=== PATIENT | male | born 1950 | race Caucasian/White ===

== ENCOUNTER 2020-05-19 12:20 | Inpatient (IN) | payer OTHER ==
[2020-05-19] VITALS (7 sets, daily range): BP systolic 119–144; BP diastolic 70–87
[~2020-05-19] VITALS: Ht 177.8 cm; Wt 108.9 kg
[~2020-05-19 12:20] MED LIST: KEFLEX500 MG PO
--- NOTE | 2020-05-19 13:00 | NUR ---
UPON CHANGING THE PATIENT INTO A GOWN I KNOWED BILATERAL LOWER LEG EDEMA. THE SKIN ON THE LOWER LEGS ARE SMOOTH, TIGHT, SHINY, WITH SOME DISCOLORATION
[2020-05-19 13:37] LABS: BASO % 0.1 % (0.0-1.0); EOS % 0.5 % (1.0-4.0); HEMATOCRIT 39.4 % (42.0-52.0); LYMPH # 1.3 10*3/uL (1.3-4.4); LYMPH % 15.4 % (27.0-41.0); MEAN CELL VOLUME 96.8 fl (80.0-94.0); MEAN CORPUSCULAR HGB 31.9 pg (27.0-31.0); MEAN PLATELET VOLUME 11.6 fl (9.6-12.3); MONO # 0.7 10*3/uL (0.1-1.0); MONO % 8.8 % (3.0-9.0); NEUT # 6.2 10*3/uL (2.3-7.9); NEUT % 74.8 % (47.0-73.0); PLATELET COUNT AUTOMATED 125 10*3/uL (130-400); RED BLOOD COUNT 4.07 10*6/uL (4.50-5.90); RED CELL DISTRI WIDTH 14.6 % (0-14.5); WHITE BLOOD COUNT 8.3 10*3/uL (4.8-10.8)
[2020-05-19 13:44] LABS: ACT PARTIAL THROMBO TIME 29.1 SECONDS (20.0-32.1); INTERNATIONAL NORM RATIO 1.3 (2.0-3.5)
[2020-05-19 13:48] LABS: ALBUMIN 3.8 gm/dl (3.1-4.5); ALKALINE PHOSPHATASE 121 U/L (45-117); BUN 13 mg/dl (7-24); CHLORIDE 105 mmol/L (98-107); CREATININE 0.83 mg/dL (0.70-1.30); LIPASE 85 U/L (73-393); POTASSIUM 4.2 mmol/L (3.5-5.1); SGOT/AST 31 IU/L (3-35); SGPT/ALT 35 U/L (12-78); SODIUM 138 mmol/L (136-145); TOTAL PROTEIN 6.5 gm/dL (6.4-8.2)
[2020-05-19 13:49] LABS: TROPONIN I 0.025 ng/ml (<0.045)
--- NOTE | 2020-05-19 15:52 | NUR ---
A 70, admitted to , under the services of OKSANA Mortensen DO with a diagnosis of CHF. Chief complaint is SHORTNESS OF BREATH, SWELLING IN LEGS. Patient arrived via bed from ER. Monitor applied. Initial assessment completed. Vital signs taken and recorded. OKSANA MORTENSEN DO notified of admission to the unit. Orders received. See assessment for past medical history, medications and allergies. Patient and/or family oriented to unit. [facility] visitation policy reviewed. Clothing/patient valuable form completed. CYNDY FRAZIER
[2020-05-19] MEDS ORDERED: MELOXICAM15 MG PO (16:08)
[2020-05-19] MEDS ORDERED: XALATAN 0.005%2.5 ML INTRAOC (16:08)
--- NOTE | 2020-05-19 20:43 | NUR ---
called and spoke with Dr. Wall about elevated HR since admission and orders to be received.
[2020-05-20 00:08] VITALS: BP 135/81
[2020-05-20 01:04] LABS: BILIRUBIN NEGATIVE; CLARITY CLEAR (CLEAR); COLOR YELLOW (YELLOW); GLUCOSE NEGATIVE; KETONE NEGATIVE
[2020-05-20 01:05] LABS: BLOOD NEGATIVE (NEGATIVE); LEUKO ESTERASE NEGATIVE (NEGATIVE); NITRITE NEGATIVE (NEGATIVE); PH 5.5 (4.5-8.0); SPECIFIC GRAVITY 1.025 (1.001-1.030)
[2020-05-20 01:06] LABS: RBC 0-2 rbc/hpf (0-2); WBC 0-2 wbc/hpf (0-5)
--- NOTE | 2020-05-20 03:28 | NUR ---
24 HR chart check completed.
[2020-05-20 06:04] LABS: BASO % 0.3 % (0.0-1.0); EOS # 0.1 10*3/uL (0.0-0.4); EOS % 1.6 % (1.0-4.0); HEMATOCRIT 38.8 % (42.0-52.0); LYMPH % 28.4 % (27.0-41.0); MEAN CELL VOLUME 96.3 fl (80.0-94.0); MEAN CORPUSCULAR HGB 31.8 pg (27.0-31.0); MEAN PLATELET VOLUME 11.6 fl (9.6-12.3); MONO # 0.8 10*3/uL (0.1-1.0); MONO % 11.2 % (3.0-9.0); NEUT % 57.9 % (47.0-73.0); PLATELET COUNT AUTOMATED 123 10*3/uL (130-400); RED BLOOD COUNT 4.03 10*6/uL (4.50-5.90); RED CELL DISTRI WIDTH 14.6 % (0-14.5); WHITE BLOOD COUNT 6.9 10*3/uL (4.8-10.8)
[2020-05-20 06:34] LABS: ALBUMIN 3.4 gm/dl (3.1-4.5); BUN 11 mg/dl (7-24); CHLORIDE 107 mmol/L (98-107); CHOLESTEROL 127 mg/dL (<200); POTASSIUM 3.5 mmol/L (3.5-5.1); SGOT/AST 28 IU/L (3-35); SGPT/ALT 34 U/L (12-78); SODIUM 141 mmol/L (136-145); TRIGLYCERIDES 40 mg/dl (<150); VLDL CHOLESTEROL 8 mg/dL (6-40)
[2020-05-20 06:41] LABS: ALKALINE PHOSPHATASE 108 U/L (45-117); FREE T4 1.11 ng/dl (0.76-1.46); HDL CHOLESTEROL 33 mg/dl (40-60); LDL CHOLESTEROL 86 mg/dL (9-159); TOTAL PROTEIN 5.9 gm/dL (6.4-8.2)
--- NOTE | 2020-05-20 07:30 | NUR ---
ASSUMED CARE FOR PT, DENIES SOB OR CHEST PAIN, CM INTACT 100-120 HR. CALL LIGHT WITHIN REACH.
[2020-05-20 08:04] LABS: VITAMIN D, 25-HYDROXY 42.3 ng/mL (30-100)
[2020-05-20 08:30] VITALS: BP 122/68
--- NOTE | 2020-05-20 08:53 | NUR ---
NOTIFIED HR IS ST 120s PER CM. SAID TO WAIT FOR CARDIO RECOMMENDATIONS.
--- NOTE | 2020-05-20 08:58 | NUR ---
Rn Flight in to talk to patient. Patient states lives at HOME with . There are 0 steps in the home. Physician: ALEXANDER RILEY, DR. PLUNKETT Pharmacy: [facility] [place] [facility]: NONE Patient's level of ADLs: INDEPENDENT Patient has working utilities: YES DME: NONE Follow-up physician's appointment after d/c: PER HOSPITALISTS OFFICE Does patient want to access PORTAL?: NO Discharge plan In to see patient to discuss discharge plan. Patient lives at home with his in a one story ranch style home with 12 steps going down into the basement. Patient does not have any DME or oxygen needs, he is independent in his ADL's and ambulation. He denies any VNA/DME needs at home at this time. When discharged, patient will return home with who will transport. . ANGELINA LOPEZ
--- NOTE | 2020-05-20 09:13 | NUR ---
PT OFF UNIT AT THIS TIME FOR MRI, LEFT IN A STABLE CONDITION. 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
--- NOTE | 2020-05-20 10:12 | NUR ---
PT RETURNED TO UNIT AT THIS TIME.
--- NOTE | 2020-05-20 10:38 | NUR ---
Shift chart check completed.
[2020-05-20 12:00] VITALS: BP 104/58
[2020-05-20 16:00] VITALS: BP 105/50
--- NOTE | 2020-05-20 16:12 | NUR ---
NOTIFIED DR. COLLINS OF PTS HR 100-120'S, DESPITE GIVING TOPROLOL XL PER ORDER. NO NEW ORDERS AT THIS TIME.
[2020-05-20 20:00] VITALS: BP 106/66
[2020-05-21] VITALS: BP 109/69
--- NOTE | 2020-05-21 02:48 | NUR ---
24 HR chart check completed.
--- NOTE | 2020-05-21 03:07 | NUR ---
SLEEPING NO ACUTE DISTRESS NOTED.
[2020-05-21 06:29] LABS: BASO % 0.1 % (0.0-1.0); EOS # 0.1 10*3/uL (0.0-0.4); EOS % 1.8 % (1.0-4.0); HEMATOCRIT 40.3 % (42.0-52.0); LYMPH % 29.6 % (27.0-41.0); MEAN CELL VOLUME 96.4 fl (80.0-94.0); MEAN CORPUSCULAR HGB 31.8 pg (27.0-31.0); MEAN PLATELET VOLUME 11.6 fl (9.6-12.3); MONO # 0.9 10*3/uL (0.1-1.0); MONO % 12.7 % (3.0-9.0); NEUT # 3.8 10*3/uL (2.3-7.9); NEUT % 55.4 % (47.0-73.0); PLATELET COUNT AUTOMATED 125 10*3/uL (130-400); RED BLOOD COUNT 4.18 10*6/uL (4.50-5.90); RED CELL DISTRI WIDTH 14.8 % (0-14.5); WHITE BLOOD COUNT 6.8 10*3/uL (4.8-10.8)
[2020-05-21 06:37] LABS: BUN 10 mg/dl (7-24); CHLORIDE 106 mmol/L (98-107); CREATININE 0.76 mg/dL (0.70-1.30); POTASSIUM 3.6 mmol/L (3.5-5.1); SODIUM 141 mmol/L (136-145)
[2020-05-21 08:00] VITALS: BP 106/54
[2020-05-21 12:00] VITALS: BP 133/74
[2020-05-21] MEDS ORDERED: XARE20MG PO (15:21)
[2020-05-21] MEDS ORDERED: METOPROLOL SUCC50 M1 PO (15:21)
--- NOTE | 2020-05-21 15:24 | NUR ---
Discharge instructions reviewed with patient/family. Patient receptive and verbalizes understanding. Follow-up care arranged. Written instructions given to patient/family. MARINA FARRELL
[2020-05-21] MEDS ORDERED: LASIX40 MG PO (15:54)
== END 2020-05-21 15:55 | disposition left against medical advice (07) | DRG 292 ==
LOC: ED 12:20 → EDHOLD 14:34 → 4E 14:34
PROVIDERS: Emergency Medicine; Internal Medicine; Registered Nurse; Student in an Organized Health Care Education/Training Program; ADMIT Internal Medicine; ATTEND Internal Medicine
DX: I11.0 Hypertensive heart disease with heart failure (principal); R65.10 Systemic inflammatory response syndrome (SIRS) of non-infectious origin without acute organ dysfunction; I48.92 Unspecified atrial flutter; I50.9 Heart failure, unspecified; D53.9 Nutritional anemia, unspecified; D69.6 Thrombocytopenia, unspecified; R00.0 Tachycardia, unspecified; Z98.49 Cataract extraction status, unspecified eye; M19.90 Unspecified osteoarthritis, unspecified site; Z82.49 Family history of ischemic heart disease and other diseases of the circulatory system; Z81.8 Family history of other mental and behavioral disorders; Z80.1 Family history of malignant neoplasm of trachea, bronchus and lung; Z53.29 Procedure and treatment not carried out because of patient's decision for other reasons

== ENCOUNTER → 2020-06-01 | Outpatient (CLI) | payer OTHER ==
[~2020-06-01] MED LIST changes: +LASIX40 MG PO; +MELOXICAM15 MG PO; +METOPROLOL SUCC50 M1 PO; +XALATAN 0.005%2.5 ML INTRAOC; +XARE20MG PO
== END | disposition home or self-care (01) ==
LOC: NM 09:51
PROVIDERS: ATTEND Internal Medicine
DX: M89.9 Disorder of bone, unspecified (principal)

== ENCOUNTER → 2020-06-20 | Outpatient (CLI) | payer OTHER ==
[~2020-06-20] MED LIST changes: +TOPROL XL50 M1 PO
== END | disposition home or self-care (01) ==
LOC: COVID19 02:42
PROVIDERS: ATTEND Internal Medicine Cardiovascular Disease
DX: Z20.828 Contact with and (suspected) exposure to other viral communicable diseases (principal); R00.2 Palpitations; I48.92 Unspecified atrial flutter

== ENCOUNTER → 2020-06-24 | Day surgery (SDC) | payer OTHER ==
[~2020-06-24] VITALS: Ht 177.8 cm; Wt 108.9 kg
[2020-06-24 11:05] VITALS: BP 97/66
[2020-06-24 12:07] VITALS: BP 105/64
[2020-06-24 12:23] VITALS: BP 103/65
[2020-06-24 12:36] VITALS: BP 94/55
== END ==
LOC: SDC 06-21 08:00
PROVIDERS: ATTEND Internal Medicine Cardiovascular Disease
DX: I48.92 Unspecified atrial flutter (principal); R00.2 Palpitations; I11.0 Hypertensive heart disease with heart failure; I50.9 Heart failure, unspecified

== ENCOUNTER 2020-07-06 21:37 | Observation (INO) | payer OTHER ==
[~2020-07-06] VITALS: Ht 177.8 cm; Wt 110.7 kg
[2020-07-06 21:49] VITALS: BP 125/60
[2020-07-06 23:03] VITALS: BP 117/72
[2020-07-06 23:11] LABS: BASO % 0.6 % (0.0-1.0); EOS # 0.1 10*3/uL (0.0-0.4); EOS % 1.7 % (1.0-4.0); HEMATOCRIT 41.1 % (42.0-52.0); LYMPH # 1.8 10*3/uL (1.3-4.4); LYMPH % 25.6 % (27.0-41.0); MEAN CELL VOLUME 99.5 fl (80.0-94.0); MEAN CORPUSCULAR HGB CONC 32.1 g/dl (33.0-37.0); MEAN PLATELET VOLUME 12.3 fl (9.6-12.3); MONO # 0.9 10*3/uL (0.1-1.0); MONO % 12.2 % (3.0-9.0); NEUT # 4.2 10*3/uL (2.3-7.9); NEUT % 58.6 % (47.0-73.0); PLATELET COUNT AUTOMATED 116 10*3/uL (130-400); RED BLOOD COUNT 4.13 10*6/uL (4.50-5.90); RED CELL DISTRI WIDTH 15.9 % (0-14.5); WHITE BLOOD COUNT 7.2 10*3/uL (4.8-10.8)
[2020-07-06 23:19] LABS: INTERNATIONAL NORM RATIO 1.8 (2.0-3.5)
[2020-07-06 23:21] LABS: ALBUMIN 3.7 gm/dl (3.1-4.5); ALKALINE PHOSPHATASE 151 U/L (45-117); BUN 14 mg/dl (7-24); CHLORIDE 106 mmol/L (98-107); CREATININE 1.07 mg/dL (0.70-1.30); POTASSIUM 3.6 mmol/L (3.5-5.1); SGOT/AST 29 IU/L (3-35); SGPT/ALT 30 U/L (12-78); SODIUM 140 mmol/L (136-145); TOTAL PROTEIN 6.2 gm/dL (6.4-8.2)
[2020-07-06 23:22] LABS: TROPONIN I 0.045 ng/ml (<0.045)
[2020-07-07 01:45] VITALS: BP 92/65
[2020-07-07 03:41] VITALS: BP 93/55
[2020-07-07 04:20] VITALS: BP 116/7; BP 116/70
[2020-07-07] MEDS ORDERED: ALDACTONE25 M1 PO (04:52)
[2020-07-07] MEDS ORDERED: BUMETANIDE1 MG PO (04:53)
[2020-07-07 08:00] VITALS: BP 111/49
[2020-07-07 12:00] VITALS: BP 122/56
[2020-07-07 16:00] VITALS: BP 103/59
== END 2020-07-07 20:11 | disposition home or self-care (01) ==
LOC: ED 21:37 → EDHOLD 07-07 00:52 → 4E 07-07 03:58
PROVIDERS: Emergency Medicine; ADMIT Family Medicine; ATTEND Family Medicine
DX: I48.92 Unspecified atrial flutter (principal); R00.0 Tachycardia, unspecified; R65.10 Systemic inflammatory response syndrome (SIRS) of non-infectious origin without acute organ dysfunction; R06.82 Tachypnea, not elsewhere classified; D53.9 Nutritional anemia, unspecified; R74.8 Abnormal levels of other serum enzymes; D69.6 Thrombocytopenia, unspecified; I11.0 Hypertensive heart disease with heart failure; I50.9 Heart failure, unspecified; M19.90 Unspecified osteoarthritis, unspecified site

== ENCOUNTER 2020-07-28 12:20 | Inpatient (IN) | payer OTHER, MEDICARE ==
[2020-07-28] VITALS (7 sets, daily range): BP systolic 97–127; BP diastolic 45–68
[~2020-07-28] VITALS: Ht 177.8 cm; Wt 108.9 kg
[~2020-07-28 12:20] MED LIST changes: +ALDACTONE25 M1 PO; +BUMETANIDE1 MG PO
[2020-07-28 14:09] LABS: BASO % 0.2 % (0.0-1.0); EOS # 0.1 10*3/uL (0.0-0.4); HEMATOCRIT 42.8 % (42.0-52.0); LYMPH # 1.9 10*3/uL (1.3-4.4); LYMPH % 19.9 % (27.0-41.0); MEAN CELL VOLUME 98.6 fl (80.0-94.0); MEAN CORPUSCULAR HGB 32.3 pg (27.0-31.0); MEAN CORPUSCULAR HGB CONC 32.7 g/dl (33.0-37.0); MONO # 1.1 10*3/uL (0.1-1.0); MONO % 11.4 % (3.0-9.0); NEUT # 6.3 10*3/uL (2.3-7.9); NEUT % 66.8 % (47.0-73.0); NUCLEATED RED BLOOD CELL 0.3 % (0.0-0.0); PLATELET COUNT AUTOMATED 92 10*3/uL (130-400); RED BLOOD COUNT 4.34 10*6/uL (4.50-5.90); RED CELL DISTRI WIDTH 16.5 % (0-14.5); WHITE BLOOD COUNT 9.4 10*3/uL (4.8-10.8)
[2020-07-28 14:23] LABS: ACT PARTIAL THROMBO TIME 34.6 SECONDS (20.0-32.1); INTERNATIONAL NORM RATIO 1.8 (2.0-3.5)
[2020-07-28 14:26] LABS: ALBUMIN 3.6 gm/dl (3.1-4.5); CREATININE 2.2 mg/dL (0.70-1.30); POTASSIUM 4.5 mmol/L (3.5-5.1); TOTAL PROTEIN 6.3 gm/dL (6.4-8.2)
[2020-07-28 14:38] LABS: TROPONIN I 0.096 ng/ml (<0.045)
[2020-07-28 14:44] LABS: BILIRUBIN Negative (Negative); BLOOD Negative (Negative); CLARITY Clear (Clear); COLOR Yellow (Yellow); GLUCOSE Negative (Negative); KETONE Negative (Negative); LEUKO ESTERASE Negative (Negative); NITRITE Negative (Negative); SPECIFIC GRAVITY 1.015 (1.001-1.030); UROBILINOGEN 0.2 E.U./dl (0.0-1.0)
[2020-07-28 15:16] LABS: CALCIUM OXALATE CRYSTALS TR
[2020-07-28 15:17] LABS: BACTERIA TRACE; EPITHELIAL CELLS 0-2; WBC 0-2 wbc/hpf (0-5)
[2020-07-29] MEDS ORDERED: TYLENOL EXTRA500 M2 PO (00:46)
[2020-07-29] MEDS ORDERED: MUCINEX1200 M1 PO (00:47)
[2020-07-29 02:02] VITALS: BP 124/57
[2020-07-29 06:09] LABS: TOTAL PROTEIN, SERUM 5.5 g/dL (6.0-8.5)
[2020-07-29 07:34] LABS: BASO % 0.3 % (0.0-1.0); EOS # 0.1 10*3/uL (0.0-0.4); HEMATOCRIT 42.1 % (42.0-52.0); LYMPH # 2.3 10*3/uL (1.3-4.4); MEAN CELL VOLUME 101.4 fl (80.0-94.0); MEAN CORPUSCULAR HGB 32.8 pg (27.0-31.0); MEAN CORPUSCULAR HGB CONC 32.3 g/dl (33.0-37.0); MEAN PLATELET VOLUME 13.6 fl (9.6-12.3); MONO # 1.1 10*3/uL (0.1-1.0); MONO % 11.7 % (3.0-9.0); NEUT % 62.3 % (47.0-73.0); NUCLEATED RED BLOOD CELL 0.4 % (0.0-0.0); PLATELET COUNT AUTOMATED 92 10*3/uL (130-400); RED BLOOD COUNT 4.15 10*6/uL (4.50-5.90); RED CELL DISTRI WIDTH 17.2 % (0-14.5); WHITE BLOOD COUNT 9.6 10*3/uL (4.8-10.8)
[2020-07-29 07:36] LABS: INTERNATIONAL NORM RATIO 1.4 (2.0-3.5)
[2020-07-29 07:42] VITALS: BP 128/50
[2020-07-29 07:45] LABS: ALBUMIN 3.5 gm/dl (3.1-4.5); POTASSIUM 4.1 mmol/L (3.5-5.1)
[2020-07-29 07:57] LABS: CREATININE 1.87 mg/dL (0.70-1.30); THYROID STIM HORMONE (HS) 1.76 uIU/ml (0.358-4.75); TOTAL PROTEIN 6.2 gm/dL (6.4-8.2)
[2020-07-29 12:00] VITALS: BP 120/69
[2020-07-29 16:00] VITALS: BP 100/57
[2020-07-29 16:08] LABS: A/G RATIO 2.1 (0.7-1.7); ALBUMIN 3.7 g/dL (2.9-4.4); ALPHA-1-GLOBULIN 0.3 g/dL (0.0-0.4); ALPHA-2-GLOBULIN 0.6 g/dL (0.4-1.0); BETA GLOBULIN 0.7 g/dL (0.7-1.3); GAMMA GLOBULIN 0.2 g/dL (0.4-1.8); GLOBULIN, TOTAL 1.8 g/dL (2.2-3.9); M-SPIKE Not Observed g/dL (Not Observed)
[2020-07-29 20:00] VITALS: BP 110/60
== END 2020-07-29 21:15 | disposition short-term general hospital (02) | DRG 640 ==
LOC: ED 12:20 → EDHOLD 14:59 → 4E 14:59 → 5E 22:36 → EDHOLD 22:36 → 4E 22:38
PROVIDERS: Emergency Medicine; Student in an Organized Health Care Education/Training Program; ADMIT Internal Medicine; ATTEND Internal Medicine
DX: E83.52 Hypercalcemia (principal); N17.0 Acute kidney failure with tubular necrosis; I48.92 Unspecified atrial flutter; E87.1 Hypo-osmolality and hyponatremia; I50.32 Chronic diastolic (congestive) heart failure; I24.8 Other forms of acute ischemic heart disease; C90.00 Multiple myeloma not having achieved remission; M19.90 Unspecified osteoarthritis, unspecified site; D75.89 Other specified diseases of blood and blood-forming organs; R74.8 Abnormal levels of other serum enzymes; R73.9 Hyperglycemia, unspecified; K46.9 Unspecified abdominal hernia without obstruction or gangrene; E83.41 Hypermagnesemia; M89.9 Disorder of bone, unspecified; D69.6 Thrombocytopenia, unspecified; Z79.01 Long term (current) use of anticoagulants; Z82.49 Family history of ischemic heart disease and other diseases of the circulatory system; Z80.2 Family history of malignant neoplasm of other respiratory and intrathoracic organs; Z82.0 Family history of epilepsy and other diseases of the nervous system; Z98.49 Cataract extraction status, unspecified eye; Z79.899 Other long term (current) drug therapy

== ENCOUNTER → 2020-10-12 | Outpatient (CLI) | payer OTHER ==
[~2020-10-12] MED LIST changes: +CEPHALEXIN500 M1 PO; +MUCINEX1200 M1 PO; +TYLENOL EXTRA500 M2 PO
[2020-10-12 09:31] LABS: HEMATOCRIT 36.3 % (42.0-52.0)
[2020-10-12 09:32] LABS: BILIRUBIN Negative (Negative); BLOOD Negative (Negative); CLARITY Clear (Clear); COLOR Yellow (Yellow); GLUCOSE 1+ (Negative); KETONE Negative (Negative); LEUKO ESTERASE Negative (Negative); NITRITE Negative (Negative); UROBILINOGEN 0.2 E.U./dl (0.0-1.0)
[2020-10-12 09:40] LABS: URINE CREATININE RANDOM 62.4 mg/dL
[2020-10-12 09:42] LABS: RBC 0-2 rbc/hpf (0-2); WBC 0-2 wbc/hpf (0-5)
[2020-10-12 09:59] LABS: BUN 33 mg/dl (7-24); CHLORIDE 90 mmol/L (98-107); CREATININE 0.97 mg/dL (0.70-1.30); POTASSIUM 3.9 mmol/L (3.5-5.1); SODIUM 127 mmol/L (136-145)
[2020-10-12 14:32] LABS: PTH INTACT 125.3 pg/mL (18.5-88.0); VITAMIN D, 25-HYDROXY 25.1 ng/mL (30-100)
[2020-10-13 09:09] LABS: CREATININE,URINE 56.8 mg/dL (Not Estab.)
== END | disposition home or self-care (01) ==
LOC: LAB 09:08
PROVIDERS: ATTEND Internal Medicine
DX: I12.9 Hypertensive chronic kidney disease with stage 1 through stage 4 chronic kidney disease, or unspecified chronic kidney disease (principal); N18.9 Chronic kidney disease, unspecified; N17.9 Acute kidney failure, unspecified; R60.9 Edema, unspecified; E55.9 Vitamin D deficiency, unspecified

== ENCOUNTER → 2020-10-26 | Outpatient (CLI) | payer OTHER ==
[2020-10-26 10:11] LABS: BUN 32 mg/dl (7-24); CHLORIDE 96 mmol/L (98-107); CREATININE 1.17 mg/dL (0.70-1.30); POTASSIUM 3.9 mmol/L (3.5-5.1); SODIUM 135 mmol/L (136-145)
== END | disposition home or self-care (01) ==
LOC: LAB 09:19
PROVIDERS: ATTEND Internal Medicine
DX: E87.1 Hypo-osmolality and hyponatremia (principal)

== ENCOUNTER 2020-10-30 19:24 | Emergency (ER) | payer OTHER ==
[~2020-10-30] VITALS: Ht 177.8 cm; Wt 102.1 kg
[~2020-10-30 19:24] MED LIST changes: -CEPHALEXIN500 M1 PO
[2020-10-30] MEDS ORDERED: CEPHALEXIN500 M1 PO (21:12)
== END 2020-10-31 01:47 | disposition home or self-care (01) ==
LOC: ED 19:24
DX: S90.31XA Contusion of right foot, initial encounter (principal); L03.115 Cellulitis of right lower limb; Z79.899 Other long term (current) drug therapy; W20.8XXA Other cause of strike by thrown, projected or falling object, initial encounter; Y93.89 Activity, other specified; Y92.89 Other specified places as the place of occurrence of the external cause; Y99.8 Other external cause status

== ENCOUNTER → 2020-11-30 | Outpatient (CLI) | payer OTHER ==
[~2020-11-30] MED LIST changes: +CEPHALEXIN500 M1 PO
[2020-11-30 10:22] LABS: BUN 21 mg/dl (7-24); CHLORIDE 92 mmol/L (98-107); CREATININE 1.01 mg/dL (0.70-1.30); SODIUM 133 mmol/L (136-145)
== END | disposition home or self-care (01) ==
LOC: LAB 09:37
PROVIDERS: ATTEND Internal Medicine
DX: N18.30 Chronic kidney disease, stage 3 unspecified (principal)

== ENCOUNTER → 2021-04-15 | Outpatient (CLI) | payer OTHER ==
[~2021-04-15] MED LIST changes: +AMIODARONE HYD200 MG PO; +BUMETANIDE2 MG PO; +DEXAMETHASONE4 MG PO; +ELIQUIS5 M1 PO; +K-TAB20 MEQ PO; +LATANOPROST2.5 ML OP; +METOPROLOL TAR100 M1 PO; +TRAZODONE50 MG PO
[2021-04-15 16:02] LABS: BILIRUBIN Negative (Negative); BLOOD Negative (Negative); CLARITY Clear (Clear); COLOR Yellow (Yellow); GLUCOSE Negative (Negative); KETONE Negative (Negative); LEUKO ESTERASE Negative (Negative); NITRITE Negative (Negative); SPECIFIC GRAVITY <= 1.005 (1.001-1.030)
[2021-04-15 16:12] LABS: URINE CREATININE RANDOM 20.1 mg/dL
[2021-04-15 16:16] LABS: EPITHELIAL CELLS 0-2; RBC 0-2 rbc/hpf (0-2); WBC 0-2 wbc/hpf (0-5)
[2021-04-15 16:17] LABS: BACTERIA TRACE
[2021-04-15 16:39] LABS: BUN 23 mg/dl (7-24); CHLORIDE 91 mmol/L (98-107); CREATININE 0.96 mg/dL (0.70-1.30); POTASSIUM 3.5 mmol/L (3.5-5.1); SODIUM 128 mmol/L (136-145)
[2021-04-15 16:52] LABS: PTH INTACT 166.5 pg/mL (18.5-88.0); VITAMIN D, 25-HYDROXY 26.3 ng/mL (30-100)
[2021-04-18 10:07] LABS: CREATININE,URINE 21.6 mg/dL (Not Estab.)
== END | disposition home or self-care (01) ==
LOC: LAB 15:25
PROVIDERS: ATTEND Internal Medicine
DX: I12.9 Hypertensive chronic kidney disease with stage 1 through stage 4 chronic kidney disease, or unspecified chronic kidney disease (principal); N18.30 Chronic kidney disease, stage 3 unspecified; R60.1 Generalized edema; C90.00 Multiple myeloma not having achieved remission; E55.9 Vitamin D deficiency, unspecified; E87.1 Hypo-osmolality and hyponatremia

== ENCOUNTER → 2021-04-21 | Outpatient (CLI) | payer OTHER ==
[2021-04-21 12:07] LABS: BUN 12 mg/dl (7-24); CHLORIDE 94 mmol/L (98-107); CREATININE 0.89 mg/dL (0.70-1.30); POTASSIUM 4.6 mmol/L (3.5-5.1); SODIUM 130 mmol/L (136-145)
== END | disposition home or self-care (01) ==
LOC: LAB 11:25
PROVIDERS: ATTEND Internal Medicine
DX: E87.1 Hypo-osmolality and hyponatremia (principal)

== ENCOUNTER 2021-05-17 07:56 | Emergency (ER) | payer OTHER ==
[2021-05-17] VITALS (14 sets, daily range): BP systolic 76–154; BP diastolic 52–87
[~2021-05-17] VITALS: Wt 95.4 kg
[~2021-05-17 07:56] MED LIST changes: -AMIODARONE HYD200 MG PO; -BUMETANIDE2 MG PO; -DEXAMETHASONE4 MG PO; -ELIQUIS5 M1 PO; -K-TAB20 MEQ PO; -LATANOPROST2.5 ML OP; -METOPROLOL TAR100 M1 PO; -TRAZODONE50 MG PO
[2021-05-17 08:25] LABS: HEMATOCRIT 48.1 % (42.0-52.0); MEAN CELL VOLUME 87.6 fl (80.0-94.0); MEAN CORPUSCULAR HGB 27.9 pg (27.0-31.0); MEAN CORPUSCULAR HGB CONC 31.8 g/dl (33.0-37.0); MEAN PLATELET VOLUME 10.7 fl (9.6-12.3); PLATELET COUNT AUTOMATED 201 10*3/uL (130-400); RED BLOOD COUNT 5.49 10*6/uL (4.50-5.90); RED CELL DISTRI WIDTH 17.8 % (0-14.5); WHITE BLOOD COUNT 18.5 10*3/uL (4.8-10.8)
[2021-05-17 08:40] LABS: ALBUMIN 2.4 gm/dl (3.1-4.5); CREATININE 1.69 mg/dL (0.70-1.30); TOTAL PROTEIN 6.4 gm/dL (6.4-8.2)
[2021-05-17 08:50] LABS: PLATELET SUFFICIENCY NORMAL (NORMAL); TOTAL CELLS COUNTED 100 #CELLS
[2021-05-17 08:55] LABS: TROPONIN I 0.513 ng/ml (<0.045)
[2021-05-17] MEDS ORDERED: TRAZODONE50 MG PO (18:32)
[2021-05-17] MEDS ORDERED: LATANOPROST2.5 ML OP (18:33)
[2021-05-17] MEDS ORDERED: ELIQUIS5 M1 PO (18:34)
[2021-05-17] MEDS ORDERED: DEXAMETHASONE4 MG PO (18:34)
[2021-05-17] MEDS ORDERED: AMIODARONE HYD200 MG PO (18:36)
[2021-05-17] MEDS ORDERED: METOPROLOL TAR100 M1 PO (18:37)
[2021-05-17] MEDS ORDERED: BUMETANIDE2 MG PO (18:37)
[2021-05-17] MEDS ORDERED: K-TAB20 MEQ PO (18:38)
[2021-05-18] VITALS (12 sets, daily range): BP systolic 90–105; BP diastolic 46–66
[2021-05-18 20:42] LABS: HEMATOCRIT 37.2 % (42.0-52.0); MEAN CORPUSCULAR HGB 27.9 pg (27.0-31.0); MEAN CORPUSCULAR HGB CONC 33.3 g/dl (33.0-37.0); MEAN PLATELET VOLUME 9.6 fl (9.6-12.3); PLATELET COUNT AUTOMATED 144 10*3/uL (130-400); RED BLOOD COUNT 4.44 10*6/uL (4.50-5.90); WHITE BLOOD COUNT 12.6 10*3/uL (4.8-10.8)
[2021-05-18 20:49] LABS: MEAN CELL VOLUME 83.8 fl (80.0-94.0)
[2021-05-18 21:00] LABS: ALBUMIN 2.1 gm/dl (3.1-4.5); ALKALINE PHOSPHATASE 104 U/L (45-117); BUN 14 mg/dl (7-24); CHLORIDE 91 mmol/L (98-107); CREATININE 1.04 mg/dL (0.70-1.30); SODIUM 131 mmol/L (136-145); TOTAL PROTEIN 5.2 gm/dL (6.4-8.2)
[2021-05-18 21:16] LABS: POTASSIUM 3.5 mmol/L (3.5-5.1); SGOT/AST 1898 IU/L (3-35); SGPT/ALT 2085 U/L (12-78); TROPONIN I 0.285 ng/ml (<0.045)
[2021-05-18 21:25] LABS: PLATELET SUFFICIENCY NORMAL (NORMAL); TOTAL CELLS COUNTED 100 #CELLS
[2021-05-18 21:26] LABS: BURR CELLS FEW
[2021-05-19 00:52] VITALS: BP 88/48
[2021-05-19 01:21] VITALS: BP 96/57
[2021-05-19 02:06] VITALS: BP 100/58
[2021-05-19 02:40] VITALS: BP 99/57
== END 2021-05-19 03:29 | disposition short-term general hospital (02) ==
LOC: ED 07:56 → EDHOLD 05-19 00:50 → ED 05-19 00:50
PROVIDERS: Emergency Medicine
DX: I47.2 Ventricular tachycardia (principal); J96.01 Acute respiratory failure with hypoxia; I21.4 Non-ST elevation (NSTEMI) myocardial infarction; I50.9 Heart failure, unspecified; Z79.2 Long term (current) use of antibiotics; Z79.899 Other long term (current) drug therapy

== ENCOUNTER → 2021-07-26 | Outpatient (CLI) | payer OTHER ==
[~2021-07-26] MED LIST changes: +AMIODARONE HYD200 MG PO; +BUMETANIDE2 MG PO; +DEXAMETHASONE4 MG PO; +ELIQUIS5 M1 PO; +K-TAB20 MEQ PO; +LATANOPROST2.5 ML OP; +METOPROLOL TAR100 M1 PO; +TRAZODONE50 MG PO
== END | disposition home or self-care (01) ==
LOC: COVID19 16:18
PROVIDERS: ATTEND Internal Medicine
DX: Z11.52 Encounter for screening for COVID-19 (principal)